=== PATIENT | male | born 1970 | race Asian ===

== ENCOUNTER 2024-10-05 09:30 | Outpatient (CLI) | payer OTHER, SELFPAY ==
--- NOTE | 2024-10-05 11:10 | W.ANESCHARGE ---
Anesthesia Charges Start Date/Time Anesthesia Start Date: 10/05/24 Anesthesia Start Time: 10:45 Stop Date/Time Anesthesia Stop Date: 10/05/24 Anesthesia Stop Time: 11:06
--- NOTE | 2024-10-05 11:11 | W.ANESCHARGE ---
Anesthesia Charges Start Date/Time Anesthesia Start Date: 10/05/24 Anesthesia Start Time: 10:45 Stop Date/Time Anesthesia Stop Date: 10/05/24 Anesthesia Stop Time: 11:06
== END 2024-10-05 09:31 | disposition home or self-care (01) ==
LOC: OP CLINIC 09:30
PROVIDERS: PCP Surgery; Visit Provider Internal Medicine Gastroenterology
DX: Z12.11 Encounter for screening for malignant neoplasm of colon (principal); D12.3 Benign neoplasm of transverse colon; Z86.0101 Personal history of adenomatous and serrated colon polyps
CPT/HCPCS: 00811; 45385; 88305; J2704